=== PATIENT | female | born 1995 | race African-American/Black ===

== ENCOUNTER 2020-10-28 21:01 | Emergency (ER) | payer MEDICAID, OTHER ==
[~2020-10-28] VITALS: Ht 172.7 cm; Wt 62.0 kg
[2020-10-28] MEDS ORDERED: ACETAMINOPHEN 325MG TABLET PO STA (21:56)
[2020-10-28 23:25] VITALS: BP 124/85
[2020-10-28 23:48] LABS: CLARITY URINE CLOUDY (CLEAR); COLOR URINE YELLOW (YELLOW); KETONES URINE TRACE (NEGATIVE); LEUKOCYTE ESTERASE URINE NEGATIVE (NEGATIVE); NITRITE URINE NEGATIVE (NEGATIVE); OCCULT BLOOD URINE 1+ (NEGATIVE); PROTEIN URINE NEGATIVE (NEGATIVE); SPECIFIC GRAVITY URINE 1.029 (1.005-1.030)
[2020-10-28 23:57] LABS: HCG SCREEN POSITIVE
== END 2020-10-29 00:57 | disposition home or self-care (01) ==
LOC: ER 21:01
DX: O26.891 Other specified pregnancy related conditions, first trimester (principal); Z3A.01 Less than 8 weeks gestation of pregnancy; F12.10 Cannabis abuse, uncomplicated; Z20.828 Contact with and (suspected) exposure to other viral communicable diseases
CPT/HCPCS: 36415; 71045; 81003; 81025; 84702; 84703; 87635; 93005; 99285; C9803

== ENCOUNTER 2020-11-10 19:19 | Emergency (ER) | payer MEDICAID ==
[~2020-11-10] VITALS: Ht 172.7 cm; Wt 62.0 kg
[2020-11-10 19:32] VITALS: BP 119/78
[2020-11-10] MEDS ORDERED: MORPHINE SULFATE 4 MG/ML CPJ (NOT FOR IM USE) IV ONE (21:15)
[2020-11-10] MEDS ORDERED: ONDANSETRON HCL 4MG/2ML INJ IV ONE (21:15)
[2020-11-10] MEDS ORDERED: ACETAMINOPHEN 325MG TABLET PO PRN (21:15)
[2020-11-10] MEDS ORDERED: SODIUM CHLORIDE 0.9% 1,000 ML IV ONE (21:15)
== END 2020-11-10 22:23 | disposition left against medical advice (07) ==
LOC: ER 19:19
DX: N93.9 Abnormal uterine and vaginal bleeding, unspecified (principal); R10.30 Lower abdominal pain, unspecified; R55 Syncope and collapse; R42 Dizziness and giddiness
CPT/HCPCS: J7030

== ENCOUNTER 2025-10-30 16:09 | Emergency (ER) | payer MEDICAID, OTHER ==
[~2025-10-30] VITALS: Ht 172.7 cm; Wt 92.0 kg
[2025-10-30 16:15] VITALS: O2SAT 100
[2025-10-30 16:39] VITALS: BP 122/92; PULSE 63; RESP 18; TEMP 36.9; O2SAT 99
[2025-10-30] MEDS ORDERED: KETOROLAC 15MG/ML VIAL IV ONE (18:15)
[2025-10-30] MEDS: SODIUM CHLORIDE 0.9% 1,000 ML IV ONE (18:31)
[2025-10-30] MEDS: ONDANSETRON HCL 4MG/2ML INJ IV SCH (18:38)
[2025-10-30] MEDS: METOCLOPRAMIDE HCL 10MG/2ML VIAL IV SCH (18:38)
[2025-10-30] MEDS: DIPHENHYDRAMINE 50MG/ML VIAL IV SCH (18:38)
[2025-10-30 19:14] LABS: HCG SCREEN NEGATIVE
== END 2025-10-30 19:13 | disposition left against medical advice (07) ==
LOC: ER 16:09
DX: G43.909 Migraine, unspecified, not intractable, without status migrainosus (principal)
CPT/HCPCS: 84703; 96374; 96375; 99284; J1200; J2765; J2405; Z7610 ×2; 96361